=== PATIENT | male | born 1960 | race Caucasian/White ===

== ENCOUNTER → 2021-02-04 | Outpatient (CLI) | payer OTHER ==
[~2021-02-04] MED LIST: ALBUTEROL2.5 MG/3 M INH; FLOMAX0.4 MG PO; IBUPROFEN600 MG PO; VENTOLIN HFA 66.7 GM INH; VITAMIN D3125 MCG PO; Voltaren Gel 1 % TOP; WELLBUTRIN SR150 M1 PO
== END ==
LOC: KOH-I 11:57
DX: J43.9 Emphysema, unspecified (principal); F17.210 Nicotine dependence, cigarettes, uncomplicated; R06.02 Shortness of breath
CPT/HCPCS: 71046

== ENCOUNTER → 2021-04-14 | Day surgery (SDC) | payer OTHER | END | disposition home or self-care (01) | LOC: OR 07:30 | DX: D12.2 Benign neoplasm of ascending colon (principal); D12.5 Benign neoplasm of sigmoid colon; D12.8 Benign neoplasm of rectum; J44.9 Chronic obstructive pulmonary disease, unspecified; Z20.822 Contact with and (suspected) exposure to COVID-19; F17.210 Nicotine dependence, cigarettes, uncomplicated; N40.0 Benign prostatic hyperplasia without lower urinary tract symptoms | CPT/HCPCS: J2001; J2704; J7120 ==

== ENCOUNTER → 2021-09-18 | Outpatient (CLI) | payer OTHER | LOC: KOH-I 15:00 | DX: R53.1 Weakness (principal); R20.2 Paresthesia of skin; M17.11 Unilateral primary osteoarthritis, right knee | CPT/HCPCS: 72040; 73560 ==

== ENCOUNTER → 2021-10-01 | Outpatient (CLI) | payer OTHER | LOC: KOH-I 14:11 | DX: I65.23 Occlusion and stenosis of bilateral carotid arteries (principal); R93.7 Abnormal findings on diagnostic imaging of other parts of musculoskeletal system; R42 Dizziness and giddiness; Z87.891 Personal history of nicotine dependence | CPT/HCPCS: 93880 ==

== ENCOUNTER → 2022-02-02 | Outpatient (CLI) | payer OTHER | LOC: KOH-I 12:10 | DX: M25.511 Pain in right shoulder (principal); M19.011 Primary osteoarthritis, right shoulder | CPT/HCPCS: 73030 ==